=== PATIENT | female | born 1990 | race Caucasian/White ===

== ENCOUNTER 2018-11-30 11:25 | Emergency (ER) | payer SELFPAY ==
[~2018-11-30] VITALS: Ht 160 cm; Wt 74.8 kg
--- NOTE | 2018-11-30 11:40 | NUR ---
PT A/O X4, PRESENTS TO THE ER C/O RIGHT FLANK PAIN 10/10. PT REPORTS PAIN X1 DAY, NON PROVOKED, DULL IN QUALITY, NON-RADIATING, 10/10, CONSTANT. PT ALSO REPORTS MULTIPLE EPISODES OF EMESIS. NO EPISODE OF VOMITING NOTED IN OUR ER. PT DENIES C/P, SOB, DIZZINESS, HEADACHE. ER MD AT BEDSIDE FOR MSE.
[2018-11-30 11:44] LABS: *BILIRUBIN,URIN NEGATIVE (NEGATIVE); *BLOOD, URINE Trace-intact (NEGATIVE); *CLARITY,URINE CLEAR (CLEAR); *COLOR,URINE YELLOW (YELLOW); *KETONES,URINE NEGATIVE (NEGATIVE); LEUKOCYTE ESTERASE ,URINE 1+ (NEGATIVE); NITRITE, URINE NEGATIVE (NEGATIVE); UGLUCOSE NEGATIVE (NEGATIVE)
[2018-11-30] MEDS ORDERED: ONDANSETRON 4 MG/2 ML VIAL IV ONE (11:45)
[2018-11-30] MEDS ORDERED: HYDROMORPHONE 1 MG/1 ML DISP.SYRIN IV ONE (11:45)
[2018-11-30] MEDS ORDERED: HYDROMORPHONE 1 MG/1 ML DISP.SYRIN ONE (11:45)
[2018-11-30] MEDS ORDERED: IV NORMAL SALINE 1000 ML BAG IV ONE (11:45)
[2018-11-30] MEDS ORDERED: ONDANSETRON 4 MG/2 ML VIAL ONE (11:46)
[2018-11-30 11:48] LABS: *URINE HCG, QUAL NEGATIVE (NEGATIVE)
[2018-11-30 11:50] LABS: BACTERIA,URINE MODERATE /HPF (NONE SEEN); RBC,URINE 0-3 /HPF (0-3); SQUAMOUS EPITHELIAL CELL,UR FEW /HPF (NONE SEEN)
[2018-11-30 11:55] LABS: BASOPHILS % (AUTO) 0.4 % (0.0-2.0); HEMATOCRIT 41.3 % (31.2-41.9); HEMOGLOBIN 13.9 g/dL (10.9-14.3); LYMPHOCYTES # (AUTO) 1.4 K/uL (20.0-40.0); LYMPHOCYTES % (AUTO) 16.8 % (20.5-51.5); MEAN CORPUSCULAR HEMOGLOBIN 28.7 uug (24.7-32.8); MEAN CORPUSCULAR HGB CONC 34 g/dL (32.3-35.6); MEAN CORPUSCULAR VOLUME 85.6 fL (75.5-95.3); MONOCYTES # (AUTO) 0.5 K/uL (2.0-10.0); NEUTROPHILS # (AUTO) 6.5 K/uL (1.8-8.9); NEUTROPHILS % (AUTO) 76.8 % (38.5-71.5); PLATELET COUNT (AUTO) 339 K/uL (179-408); RED BLOOD CELL COUNT(AUTO) 4.82 MIL/uL (3.63-4.92); WHITE BLOOD COUNT (AUTO) 8.5 K/uL (3.8-11.8)
--- NOTE | 2018-11-30 11:57 | NUR ---
US TECH AT BEDSIDE. F CHAPPERONE PRESENT AT BEDSIDE.
[2018-11-30 12:00] LABS: CREATININE 0.9 mg/dL (0.6-1.3); POTASSIUM 3.5 mmol/L (3.5-5.1)
--- NOTE | 2018-11-30 12:02 | NUR ---
Female animation artist accompanied female patient for (U/S TECH).
[2018-11-30 12:06] LABS: BILIRUBIN,DIRECT 0.1 mg/dL (0.0-0.2); BILIRUBIN,TOTAL 0.5 mg/dL (0.2-1.0); TOTAL PROTEIN, SERUM 8.7 g/dL (6.4-8.2)
--- NOTE | 2018-11-30 12:12 | NUR ---
LUISITO PETTY AT BEDSIDE FOR PT UPDATE.
--- NOTE | 2018-11-30 12:20 | NUR ---
PT REPORTS DESIRE TO BE D/C FROM THE ER.
--- NOTE | 2018-11-30 12:30 | NUR ---
PT D/C DUE TO PT'S DESIRE TO BE D/C. PT VERBALIZES UNDERSTANDING OF RISKS TO LEAVING THE ER PRIOR TO RECEIVING ALL NECESSARY INTERVENTIONS. ER MD AWARE. 20G IV ACCESS IN LAC REMOVED PRIOR TO D/C - INNER CANNULA INTACT. PT VERBALIZES UNDERSTANDING TO NOT DRIVE HOME - STATES SHE WILL BE PICKED UP BY A FAMILY MEMBER IN PRIVATE VEHICLE.
[2018-11-30 12:32] VITALS: BP 112/82
== END 2018-11-30 12:32 | disposition home or self-care (01) ==
LOC: ER 11:25
DX: N39.0 Urinary tract infection, site not specified (principal); R31.29 Other microscopic hematuria; F17.200 Nicotine dependence, unspecified, uncomplicated; Z88.5 Allergy status to narcotic agent; Z88.8 Allergy status to other drugs, medicaments and biological substances
CPT/HCPCS: 36415; 76856; 80048; 80076; 81001; 83690; 84703; 85025; 96361; 96374; 96375; 99284; J1170; J2405; A4663; J7030